=== PATIENT | female | born 1970 | race Caucasian/White ===

== ENCOUNTER 2016-08-10 12:05 | Emergency (ER) | payer OTHER ==
[2016-08-10 13:46] VITALS: RESP 18
[2016-08-10 14:12] LABS: Appearance,Urine Turbid (Clear); Bacteria,Urine Rare /hpf; Bilirubin,Urine Negative (Negative); Glucose,Urine (UA) Negative (Negative); Ketones,Urine Negative (Negative); Leukocyte Esterase,Urine Moderate (Negative); Nitrite,Urine Negative (Negative); PH, Urine 6.5 (5.0-8.0); Particle Count 4666; Protein,Urine 2+ (Negative); RBC,Urine >182 /hpf (0-5); Specific Gravity,Urine 1.013 (1.001-1.035); UA Billing (MACRO vs. MICRO) MICRO; Urobilinogen,Urine <2.0 mg/dL (<2.0); WBC,Urine 174 /hpf (0-5)
[2016-08-10] MEDS ORDERED: SODIUM CHLORIDE 0.9% 1,000 ML IV ONE (15:39)
[2016-08-10] MEDS ORDERED: HYDROmorphone 1 MG/ML 1 ML SYRINGE IVP STA (15:39)
--- NOTE | 2016-08-10 15:44 | ED ---
Abdominal Pain HPI - General Chief Complaint: Abdominal Pain Stated Complaint: Abd Pain Time Seen by Provider: 08/10/16 15:16 Source: patient, RN notes reviewed Mode of arrival: ambulatory - History of Present Illness Initial Comments: Patient is a 45-year-old female since emergency room for evaluation of abdominal and flank pain. Patient states last night she began developing lower flank pain. Patient states around 3:00 this morning she went to urinate and had extreme pain radiating from her flank on the right side to her abdomen. Patient states that she noticed blood in her urine. Patient is every time she goes to urinate today she has extreme pain with blood in her urine. Patient does state she had a kidney stone about a year ago. Patient states this pain is a lot worse than it was a year ago. Patient denies any vomiting a she's had on-and-off nausea. Patient denies any current nausea. Patient states having constant 9 out of 10 flank pain and lower pelvic pain. Patient stated last menstrual period was 2 weeks ago. Patient has a fevers or chills. Patient denies headache or dizziness. Patient denies chest pain shortness of breath. - Related Data Home Medications Medication Instructions Recorded Confirmed Relacore 3 tab PO DAILY 08/10/16 08/10/16 Previous Rx's Medication Instructions Recorded Ciprofloxacin HCl [Cipro] 500 mg PO Q12HR 10 Days 08/10/16 HYDROcodone/APAP 5-325MG [[place] 1 tab PO Q6HR PRN #12 tab 08/10/16 5-325] Ondansetron Odt [Zofran Odt] 4 mg PO Q8HR PRN #12 tab 08/10/16 Allergies Allergy/AdvReac Type Severity Reaction Status Date / Time amoxicillin Allergy Anaphylaxis Verified 08/10/16 15:32 codeine Allergy Unknown Verified 08/10/16 15:32 Review of Systems ROS Statement: Those systems with pertinent positive or pertinent negative responses have been documented in the HPI. ROS Other: All systems not noted in ROS Statement are negative. Past Medical History Past Medical History: No Reported History History of Any Multi-Drug Resistant Organisms: None Reported Past Surgical History: Orthopedic Surgery, Tubal Ligation Past Psychological History: Anxiety Smoking Status: Never smoker Past Alcohol Use History: Rare Past Drug Use History: None Reported General Exam - General Exam Comments Initial Comments: Sitting on exam bed, no acute distress. Limitations: no limitations General appearance: alert, in no apparent distress Head exam: Present: atraumatic, normocephalic, normal inspection Eye exam: Present: normal appearance ENT exam: Present: normal exam Neck exam: Present: normal inspection Respiratory exam: Present: normal lung sounds bilaterally. Absent: respiratory distress Cardiovascular Exam: Present: regular rate, normal rhythm, normal heart sounds GI/Abdominal exam: Present: soft, normal bowel sounds. Absent: distended, tenderness, guarding, rebound, rigid Extremities exam: Present: normal inspection Back exam: Present: normal inspection, CVA tenderness (R), CVA tenderness (L) Neurological exam: Present: alert, oriented X3, CN II-XII intact, normal gait Psychiatric exam: Present: normal affect, normal mood Skin exam: Present: warm, dry, intact, normal color. Absent: rash Course Vital Signs 08/10/16 08/10/16 13:43 17:10 Temperature 96.9 F L 97.9 F Pulse Rate 101 H 65 Respiratory 18 18 Rate Blood Pressure 138/81 139/65 O2 Sat by Pulse 100 99 Oximetry Medical Decision Making - Medical Decision Making Patient is a 45-year-old female presents to the emergency room for evaluation of bilateral flank pain and abdominal pain. Urinalysis suspicious for severe urinary tract infection. Patient is afebrile. Vitals are currently stable. Will start patient on IV antibiotics and send her home with Rolanda Pastor. Advised patient to return for any worsening symptoms or fever development. Patient states she understands everything that was discussed with her. Case discussed with Dr. Caballero. - Lab Data Result diagrams: 08/10/16 15:30 08/10/16 15:30 Lab Results 08/10/16 08/10/16 08/10/16 Range/Units 13:47 15:30 15:30 WBC 14.5 H (3.8-10.6) k/uL RBC 5.22 (3.80-5.40) m/uL Hgb 12.2 (11.4-16.0) gm/dL Hct 39.9 (34.0-46.0) % MCV 76.3 L (80.0-100.0) fL MCH 23.3 L (25.0-35.0) pg MCHC 30.6 L (31.0-37.0) g/dL RDW 15.7 H (11.5-15.5) % Plt Count 343 (150-450) k/uL Neutrophils % 80 % Lymphocytes % 13 % Monocytes % 5 % Eosinophils % 0 % Basophils % 0 % Neutrophils # 11.6 H (1.3-7.7) k/uL Lymphocytes # 1.8 (1.0-4.8) k/uL Monocytes # 0.7 (0-1.0) k/uL Eosinophils # 0.0 (0-0.7) k/uL Basophils # 0.1 (0-0.2) k/uL Hypochromasia Moderate Microcytosis Slight Sodium 137 (137-145) mmol/L Potassium 4.0 (3.5-5.1) mmol/L Chloride 99 (98-107) mmol/L Carbon Dioxide 25 (22-30) mmol/L Anion Gap 13 mmol/L BUN 8 (7-17) mg/dL Creatinine 0.60 (0.52-1.04) mg/dL Est GFR (MDRD) Af Amer >60 (>60 ml/min/1.73 sqM) Est GFR (MDRD) Non-Af >60 (>60 ml/min/1.73 sqM) Glucose 93 (74-99) mg/dL Calcium 9.4 (8.4-10.2) mg/dL Total Bilirubin 0.9 (0.2-1.3) mg/dL AST 23 (14-36) U/L ALT 30 (9-52) U/L Alkaline Phosphatase 90 (38-126) U/L Total Protein 8.3 H (6.3-8.2) g/dL Albumin 4.8 (3.5-5.0) g/dL Amylase 54 (30-110) U/L Lipase 117 (23-300) U/L Urine Color Red Urine Appearance Turbid H (Clear) Urine pH 6.5 (5.0-8.0) Ur Specific [place] 1.013 (1.001-1.035) Urine Protein 2+ H (Negative) Urine Glucose (UA) Negative (Negative) Urine Ketones Negative (Negative) Urine Blood Large H (Negative) Urine Nitrate Negative (Negative) Urine Bilirubin Negative (Negative) Urine Urobilinogen <2.0 (<2.0) mg/dL Ur Leukocyte Esterase Moderate H (Negative) Urine RBC >182 H (0-5) /hpf Urine WBC 174 H (0-5) /hpf Urine WBC Clumps Few H (None) /hpf Urine Bacteria Rare H (None) /hpf - Radiology Data Radiology results: report reviewed, image reviewed Disposition Clinical Impression: Pyelonephritis Disposition: HOME SELF-CARE Condition: Good Instructions: Kidney Infection (ED) Additional Instructions: Take antibiotics as directed. Drink plenty of fluids. Take Tylenol or Motrin as needed for pain. Take as [place] as needed for severe pain. Please follow-up with primary care provider in 24-48 hours for reevaluation. If any new symptom arises, symptoms worsen or fever develops, return to ER as soon as possible. Prescriptions: HYDROcodone/APAP 5-325MG [[place] 5-325] 1 tab PO Q6HR PRN #12 tab PRN Reason: Pain Ondansetron Odt [Zofran Odt] 4 mg PO Q8HR PRN #12 tab PRN Reason: Nausea Ciprofloxacin HCl [Cipro] 500 mg PO Q12HR 10 Days Referrals: None,Stated [Primary Care Provider] - 1-2 days Time of Disposition: 16:52
--- NOTE | 2016-08-10 16:00 | XR ---
EXAMINATION TYPE: XR KUB DATE OF EXAM: 08/10/2016 3:55 PM COMPARISON: NONE HISTORY: Lower quadrant abdominal pain FINDINGS: The osseous structures are intact. The bowel gas pattern is nonspecific. Calcifications in the pelvi s are nonspecific. Arthropathy involving the hip joints. No suspicious calcifications overlying the kidneys. IMPRESSION: 1. Nonspecific abdomen.
[2016-08-10 16:08] LABS: ALT 30 U/L (9-52); AST 23 U/L (14-36); Alkaline Phosphatase 90 U/L (38-126); Amylase 54 U/L (30-110); Anion Gap 13 mmol/L; Basophils # (A) 0.1 k/uL (0-0.2); Basophils % (A) 0 %; Blood Urea Nitrogen 8 mg/dL (7-17); CH 23.4; CHCM 30.8; Calcium 9.4 mg/dL (8.4-10.2); Carbon Dioxide 25 mmol/L (22-30); Chloride 99 mmol/L (98-107); Eosinophils % (A) 0 %; Glucose 93 mg/dL (74-99); HCT 39.9 % (34.0-46.0); HDW 2.86; HGB 12.2 gm/dL (11.4-16.0); Hypochromasia Moderate; Luc # (Auto) 0.26; Luc % (Auto) 2; Lymphocytes # (A) 1.8 k/uL (1.0-4.8); Lymphocytes % (A) 13 %; MCH 23.3 pg (25.0-35.0); MCHC 30.6 g/dL (31.0-37.0); MCV 76.3 fL (80.0-100.0); Mean Platelet Volume 6.4; Microcytosis Slight; Monocytes # (A) 0.7 k/uL (0-1.0); Monocytes % (A) 5 %; Neutrophils # (A) 11.6 k/uL (1.3-7.7); Neutrophils % (A) 80 %; Non-African American GFR(MDRD) >60 (>60 ml/min/1.73 sqM); RBC 5.22 m/uL (3.80-5.40); RDW 15.7 % (11.5-15.5); Sodium 137 mmol/L (137-145); Total Bilirubin 0.9 mg/dL (0.2-1.3); Total Protein 8.3 g/dL (6.3-8.2); WBC 14.5 k/uL (3.8-10.6); WBC (Perox) 14.63
[2016-08-10] MEDS ORDERED: cefTRIAXone 2,000 MG in SODIUM CHLORIDE 0.9% 100 ML IVPB STA (16:23)
[2016-08-10] MEDS ORDERED: LEVOFLOXACIN 500MG-D5W PMX 500 MG in DEXTROSE/WATER 1 100ML.BAG IVPB STA (16:31)
[2016-08-10 17:12] VITALS: BP 139/65; PULSE 65; TEMP 97.9
[2016-08-10] MEDS ORDERED: ONDANSETRON ODT 4 MG TAB PO STA (17:30)
== END 2016-08-10 17:40 | disposition home or self-care (01) ==
LOC: EC 12:05
DX: N12 Tubulo-interstitial nephritis, not specified as acute or chronic (principal); Z87.442 Personal history of urinary calculi; Z79.899 Other long term (current) drug therapy; Z88.5 Allergy status to narcotic agent; Z88.0 Allergy status to penicillin
CPT/HCPCS: 80053; 82150; 83690; 85025; 81001; 87086; 74000; 99284; 96365; 96375; J1956; J1170; 87077; 87186

== ENCOUNTER → 2016-12-30 | Outpatient (CLI) | payer OTHER ==
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
== END | disposition home or self-care (01) ==
LOC: RADXRMAIN 08:29
PROVIDERS: ATTEND Emergency Medicine
DX: M79.644 Pain in right finger(s) (principal)

== ENCOUNTER 2017-08-29 08:58 | Emergency (ER) | payer OTHER ==
[2017-08-29 09:06] VITALS: BP 138/84; PULSE 87; RESP 18; TEMP 99.1
[2017-08-29] MEDS ORDERED: IBUPROFEN 600 MG TAB PO STA (09:31)
--- NOTE | 2017-08-29 09:47 | XR ---
EXAMINATION TYPE: XR Hip RT and AP Pelvis DATE OF EXAM: 08/29/2017 COMPARISON: NONE HISTORY: Pain TECHNIQUE: A single AP view of the pelvis is obtained. Two views of the right hip are obtained. FINDINGS: There is no acute fracture/dislocation evident in the pelvis. The hip and sacroiliac join ts appear symmetric and unremarkable. The overlying soft tissue appears unremarkable. Hypertrophic a nd degenerative change of lower lumbar spine. Two views of right hip show no acute fracture or dislocation. No focal lytic or sclerotic lesion see n in the proximal right femur. The overlying soft tissue is unremarkable. Hypertrophic change of th e acetabulum noted. Femoral acetabular impingement in the differential. IMPRESSION: There is no acute fracture or dislocation in the pelvis or right hip.
--- NOTE | 2017-08-29 09:54 | ED ---
General Adult HPI - General Chief complaint: Fall Stated complaint: FALL, RT LEG INJURY, COLD SYMPTOMS Time Seen by Provider: 08/29/17 09:23 Source: patient, RN notes reviewed Mode of arrival: ambulatory Limitations: no limitations - History of Present Illness Initial comments: 47-year-old female presents to the emergency department with a chief complaint of right hip pain. Patient states that she slipped and fell on causing pain to the right. Patient states she's been resting or icing and elevating. She's noted. Chest bruising. She states she just continues to have this pain. Patient states she's also had a little bit of a fever chills cough like symptoms as well. She states she did have some nausea vomiting with it as well. Patient was concerned due to her continued symptoms and pain so she thought that she should be seen. Patient denies any other symptoms at this time. Patient denies any recent shortness of breath, chest pain, back pain, abdominal pain, numbness or tingling, dysuria or hematuria, constipation or diarrhea, headaches or visual changes, or any other current symptoms. - Related Data Previous Rx's Medication Instructions Recorded Ibuprofen [Motrin] 600 mg PO Q6HR PRN #20 tab 08/29/17 Allergies Allergy/AdvReac Type Severity Reaction Status Date / Time amoxicillin Allergy Anaphylaxis Verified 08/29/17 09:23 codeine Allergy Unknown Verified 08/29/17 09:23 Review of Systems ROS Statement: Those systems with pertinent positive or pertinent negative responses have been documented in the HPI. ROS Other: All systems not noted in ROS Statement are negative. Past Medical History Past Medical History: No Reported History History of Any Multi-Drug Resistant Organisms: None Reported Past Surgical History: Orthopedic Surgery, Tubal Ligation Past Psychological History: Anxiety Smoking Status: Never smoker Past Alcohol Use History: Rare Past Drug Use History: None Reported General Exam - General Exam Comments Initial Comments: General: The patient is awake and alert, in no distress, and does not appear acutely ill. Neck: The neck is supple, there is no tenderness. Cardiovascular: There is a regular rate and rhythm. No murmur, rub or gallop is appreciated. Respiratory: Lungs are clear to auscultation, respirations are non-labored, breath sounds are equal. No wheezes, stridor, rales, or rhonchi. Musculoskeletal: Sensation intact with 2+ pulses. Right lower x-ray. Fund motion of right hip right knee and right ankle. Patient has tenderness with patient along the eczema. Area below the right hip. Tenderness to the lateral aspect of the right hip. Neurological: CN II-XII intact, There are no obvious motor or sensory deficits. Coordination appears grossly intact. Speech is normal. Skin: Skin is warm and dry and no rashes or lesions are noted. Psychiatric: Normal mood and affect. Limitations: no limitations Course Vital Signs 08/29/17 09:03 Temperature 99.1 F Pulse Rate 87 Respiratory 18 Rate Blood Pressure 138/84 O2 Sat by Pulse 100 Oximetry Medical Decision Making - Medical Decision Making 47-year-old female presents to the emergency department with a chief complaint of right pain after a fall. She has also had flulike symptoms. At this time x- rays reviewed that does not show any bony abnormality. We did discuss follow- up with or so. We will give her Motrin 600 for home. We did discuss patient's influenza testing as well. We discussed Tylenol for fever control. At this time patient x-rays reviewed that shows no acute fracture. This time we discussed most likely of right hip strain. We did discuss that she needs to follow-up with her doctor for continued care. We did discuss return parameters and we'll start her on Motrin for home for pain medication. We did discuss all questions of her questions have been answered. She will be discharged. - Lab Data Lab Results 08/29/17 Range/Units 09:50 Influenza Type A RNA Not Detected (Not Detectd) Influenza Type B (PCR) Not Detected (Not Detectd) - Radiology Data Radiology results: report reviewed, image reviewed Disposition Clinical Impression: Fall, Strain of right hip, Upper respiratory infection Disposition: HOME SELF-CARE Condition: Stable Instructions: Hip Pain (ED) Additional Instructions: Please use medication as discussed. Please follow up with family doctor if symptoms have not improved over the next two days. Please return to the emergency room if your symptoms increase or worsen or for any other concerns. Prescriptions: Ibuprofen [Motrin] 600 mg PO Q6HR PRN #20 tab PRN Reason: Pain Referrals: Nik Jimenez MD [Primary Care Provider] - 1-2 days Time of Disposition: 10:29
== END 2017-08-29 10:58 | disposition home or self-care (01) ==
LOC: EC 08:58
DX: S76.011A Strain of muscle, fascia and tendon of right hip, initial encounter (principal); J06.9 Acute upper respiratory infection, unspecified; L30.9 Dermatitis, unspecified; Z88.0 Allergy status to penicillin; Z88.5 Allergy status to narcotic agent; W01.0XXA Fall on same level from slipping, tripping and stumbling without subsequent striking against object, initial encounter; Y92.009 Unspecified place in unspecified non-institutional (private) residence as the place of occurrence of the external cause
CPT/HCPCS: 73502; 87502; 99283

== ENCOUNTER 2017-10-06 08:39 | Emergency (ER) | payer OTHER ==
[2017-10-06 08:44] VITALS: TEMP 98.5
[2017-10-06] MEDS ORDERED: IBUPROFEN 600 MG TAB PO STA (09:00)
--- NOTE | 2017-10-06 09:03 | ED ---
General Adult HPI - General Chief complaint: Extremity Injury, Lower Stated complaint: FALL RT KNEE INJURY Time Seen by Provider: 10/06/17 08:48 Source: patient, RN notes reviewed Mode of arrival: wheelchair Limitations: no limitations - History of Present Illness Initial comments: 47-year-old female presents to the emergency department with a chief complaint of right knee and left knee pain. Patient slipped and fell on the ice. Patient states that she was able to get up and walk after but she's having a lot of knee pain. More the right than the left she's had abrasion to the left knee. She states that she does have some pain in the back of the right knee she is able to move it. She states it is not tender to touch it's more worse to movement and it feels as if it cannot support her. She states her pain is moderate. There is no radiation. She did not hit her head and there is no other injury with the incident.Patient denies any recent fever, chills, shortness of breath, chest pain, back pain, abdominal pain, nausea vomiting, numbness or tingling, dysuria or hematuria, constipation or diarrhea, headaches or visual changes, or any other current symptoms. - Related Data Home Medications Medication Instructions Recorded Confirmed Cephalexin [Keflex] 500 mg PO TID 10/06/17 10/06/17 Ferrous Gluconate [Ferrous 324 mg PO DAILY 10/06/17 10/06/17 Gluconate] Lisinopril-Hctz 20-12.5 mg 1 tab PO DAILY 10/06/17 10/06/17 [Zestoretic 20-12.5] Previous Rx's Medication Instructions Recorded Ibuprofen [Motrin] 600 mg PO Q6HR PRN #20 tab 10/06/17 Allergies Allergy/AdvReac Type Severity Reaction Status Date / Time amoxicillin Allergy Anaphylaxis Verified 08/29/17 09:23 codeine Allergy Unknown Verified 08/29/17 09:23 Review of Systems ROS Statement: Those systems with pertinent positive or pertinent negative responses have been documented in the HPI. ROS Other: All systems not noted in ROS Statement are negative. Past Medical History Past Medical History: No Reported History History of Any Multi-Drug Resistant Organisms: None Reported Past Surgical History: Orthopedic Surgery, Tubal Ligation Additional Past Surgical History / Comment(s): ankle Past Psychological History: Anxiety Smoking Status: Never smoker Past Alcohol Use History: Rare Past Drug Use History: None Reported General Exam - General Exam Comments Initial Comments: General: The patient is awake and alert, in no distress, and does not appear acutely ill. Neck: The neck is supple, there is no tenderness. Cardiovascular: There is a regular rate and rhythm. No murmur, rub or gallop is appreciated. Respiratory: Lungs are clear to auscultation, respirations are non-labored, breath sounds are equal. No wheezes, stridor, rales, or rhonchi. Musculoskeletal: Sensation intact with 2+ pulses throughout the right lower extremity. Frontal motion of right hip right knee and right ankle. Patient has no bony tenderness. There is tenderness with patient the posterior aspect of the right knee. 5 out of 5 muscle strength testing. Patient is afraid motion of left knee with no bony tenderness. She does have an abrasion to the anterior left knee. Neurological: CN II-XII intact, There are no obvious motor or sensory deficits. Coordination appears grossly intact. Speech is normal. Skin: Skin is warm and dry and no rashes or lesions are noted. Psychiatric: Normal mood and affect. Limitations: no limitations Course Vital Signs 10/06/17 08:41 Temperature 98.5 F Pulse Rate 111 H Respiratory 18 Rate Blood Pressure 140/88 O2 Sat by Pulse 100 Oximetry Procedures - Orthopedic Splinting/Casting Injury #1 Side: right Lower Extremity Injury Location: knee Lower Extremity Immobilizer: knee immobilizer Medical Decision Making - Medical Decision Making 47-year-old female presents for trip and fall. At this time x-rays are reviewed and negative. This time patient appears to have a right knee sprain and left knee abrasion. At this time she was placed in a knee immobilizer. We discussed that she needs to follow-up with or so for this. We did discuss return parameters all questions. Patient stated that she understood and she is in agreement this plan. All questions have been answered. Patient will be discharged. - Radiology Data Radiology results: report reviewed, image reviewed Disposition Clinical Impression: Right knee sprain, Abrasion, left knee, initial encounter Disposition: HOME SELF-CARE Condition: Stable Instructions: Knee Sprain (ED) Additional Instructions: Please use medication as discussed. Please follow up with family doctor if symptoms have not improved over the next two days. Please return to the emergency room if your symptoms increase or worsen or for any other concerns. Prescriptions: Ibuprofen [Motrin] 600 mg PO Q6HR PRN #20 tab PRN Reason: Pain Referrals: Nik Jimenez MD [Primary Care Provider] - 1-2 days Emanuel Gann MD [STAFF PHYSICIAN] - 1-2 days Time of Disposition: 09:51
[2017-10-06] MEDS ORDERED: HYDROcodone/APAP 5-325MG 1 EACH TAB PO STA (09:29)
--- NOTE | 2017-10-06 09:49 | XR ---
Bilateral knees HISTORY: Trauma and pain 3 views of both knees are submitted. No comparisons Bone mineralization, joint spaces and alignment are maintained. No evident joint effusions. IMPRESSION: No fracture or dislocation bilaterally.
[2017-10-06 10:37] VITALS: BP 119/69; PULSE 103; RESP 20
== END 2017-10-06 10:37 | disposition home or self-care (01) ==
LOC: EC 08:39
DX: S83.91XA Sprain of unspecified site of right knee, initial encounter (principal); S80.212A Abrasion, left knee, initial encounter; Z79.899 Other long term (current) drug therapy; Z88.0 Allergy status to penicillin; Z88.5 Allergy status to narcotic agent; W00.0XXA Fall on same level due to ice and snow, initial encounter
CPT/HCPCS: 73562; 99283; L1830